=== PATIENT | female | born 1935 ===

== ENCOUNTER → 2021-12-15 13:10 | Outpatient (BNVA) | payer MEDICARE, OTHER, SELFPAY | PROVIDERS: PCP Internal Medicine; Visit Provider Psychiatry & Neurology Neurology | DX: G20 Parkinson's disease (principal); R26.9 Unspecified abnormalities of gait and mobility; Z79.899 Other long term (current) drug therapy | CPT/HCPCS: Q3014 ==

== ENCOUNTER → 2022-06-06 14:22 | Outpatient (BNVA) | payer MEDICARE, OTHER, SELFPAY | PROVIDERS: PCP Internal Medicine; Visit Provider Psychiatry & Neurology Neurology | DX: G20 Parkinson's disease (principal); R26.9 Unspecified abnormalities of gait and mobility | CPT/HCPCS: 99212 ==

== ENCOUNTER → 2022-11-07 15:19 | Outpatient (BNVA) | payer MEDICARE, OTHER, SELFPAY | PROVIDERS: PCP Internal Medicine; Visit Provider Psychiatry & Neurology Neurology | DX: G20 Parkinson's disease (principal); R26.9 Unspecified abnormalities of gait and mobility; Z79.899 Other long term (current) drug therapy | CPT/HCPCS: 99212 ==

== ENCOUNTER → 2023-05-15 13:10 | Outpatient (BNVA) | payer MEDICARE, OTHER, SELFPAY | PROVIDERS: PCP Internal Medicine; Visit Provider Psychiatry & Neurology Neurology | DX: G20 Parkinson's disease (principal); R26.9 Unspecified abnormalities of gait and mobility; Z79.899 Other long term (current) drug therapy | CPT/HCPCS: Q3014 ==

== ENCOUNTER 2024-04-03 15:06 | Outpatient (AMB) | payer MEDICARE, OTHER, SELFPAY ==
--- NOTE | 2024-04-03 15:08 | A.OFFVIS_ITS ---
Vital Signs 04/03/24 15:09 BP 126/68 Blood Pressure Location Lt brachial Position Sitting Respiration 16 Pulse 76 Pulse Source Palpation Intake Visit Reasons: F/u for Parkinson's and Dementia - Confirmed Intake Note: Pt pressents to the office for her one year follow up for Parkinson's and dementia. [employer] Blocking Operator Required: No Allergies narcotic Allergy (Mild, Uncoded 04/03/24 15:15) behavioral changes sulfa Allergy (Mild, Uncoded 04/03/24 15:15) Rash Medication List - Last Reconciled 04/03/24 by Kathy Krueger MD acetaminophen (Pain Relief (acetaminophen)) 325 mg PO QID PRN albuterol sulfate 90 mcg/actuation 2 puffs inhalation Q6H PRN carbidopa-levodopa 25-100 mg 1 tab PO TID cyanocobalamin (vitamin B-12) 1,000 mcg IM ONCE PRN demeclocycline 150 mg PO Q6H diltiazem HCl ER (Tiadylt ER) 360 mg PO DAILY famotidine 20 mg PO DAILY furosemide 20 mg PO DAILY losartan 100 mg PO DAILY omeprazole 20 mg PO DAILY polyethylene glycol 3350 17 grams PO DAILY sertraline 25 mg PO DAILY HPI Comments Details: ???88y/o female calls for follow up.she uses a walker in the house and is walking less. she has moved in with her daughter Nevin and is planning to move to Assisted Living. she is on sinemet 25/100 tid Her parkinsons is stable . No increase in tremors Her bowel movements are regular with daily 1/2 dose of miralax. ?She has chronic back pain and law hip pain which affects her walking. she takes tylenol 500mg 2tabs tid . she sleeps good. ?Her memory is worse with word finding difficulty.[facility] -did OT and PT, speech no tremors, no dizziness . No falls. Her Gerantologist switched her from Fluoxetine to sertraline. when it was increased to 50mg she started feeling sleepy. ??? [facility] Medical History Hyperlipidemia Spinal stenosis of lumbar region HTN (hypertension) Polymyalgia rheumatica Hamartoma of lung GERD (gastroesophageal reflux disease) Diabetes CHF (congestive heart failure) Arthritis Anemia Surgical History H/O knee surgery History of back surgery Family History Father No problems noted. Mother No problems noted. Social History Alcohol intake: never Patient Tobacco Use Status: Never used Tobacco Physical Exam Vital Signs: Last Vital Signs Pulse 76 04/03/24 15:09 Resp 16 04/03/24 15:09 BP 126/68 04/03/24 15:09 Const Other: Mild decreased facial expression and blink General: cooperative, healthy appearing and comfortable Orientation/consciousness: patient oriented x3 Neuro Other: No tremors FFM mildly decreased law SHe did not bring her walker. General: patient oriented x3 Cognition (Neuro): normal cognition Assessment & Plan Assessment & Plan (1) Parkinson's Disease: Code(s): G20.A1 - Parkinson's disease without dyskinesia, without mention of fluctuations (2) Abnormal gait: Code(s): R26.9 - Unspecified abnormalities of gait and mobility Plan Continue sinemet 25/100 tid F/uarthritis specialist Continue PT Miralax qd and senna qhs Discuss with gerantologist about sertraline side effects Coding Level of Care Code Est Pt Level 4 (83597) Diagnoses Parkinson's Disease G20.A1 Abnormal gait R26.9
[2024-04-03 15:09] VITALS: BP 126/68; PULSE 76; RESP 16
== END 2024-04-03 15:51 | disposition home or self-care (01) ==
PROVIDERS: PCP Internal Medicine; Visit Provider Psychiatry & Neurology Neurology
DX: G20.A1 Parkinson's disease without dyskinesia, without mention of fluctuations (principal); R26.9 Unspecified abnormalities of gait and mobility
CPT/HCPCS: 99214

== ENCOUNTER → 2024-04-03 15:06 | Outpatient (BNVA) | payer MEDICARE, OTHER, SELFPAY | PROVIDERS: PCP Internal Medicine; Visit Provider Psychiatry & Neurology Neurology | DX: G20.A1 Parkinson's disease without dyskinesia, without mention of fluctuations (principal); R26.9 Unspecified abnormalities of gait and mobility | CPT/HCPCS: 99212 ==